=== PATIENT | female | born 1975 | race Caucasian/White ===

== ENCOUNTER 2018-06-05 13:48 | Emergency (ER) | payer SELFPAY ==
[~2018-06-05] VITALS: Ht 167.6 cm; Wt 82.3 kg
[2018-06-05 13:55] VITALS: BP 175/87
--- NOTE | 2018-06-05 14:07 | NUR ---
PT AMBULATED TO ER BED 12
--- NOTE | 2018-06-05 14:10 | NUR ---
PT C/O LLQ ABD PAIN RADIATES TO BACK, REPORTS 10/10 BURNING PAIN. REPORTS NAUSEA . DENIES V/D; SKIN IS PINK/WARM/DRY; AAOX4 WITH EVEN AND STEADY GAIT; LUNGS CLEAR BL; HR EVEN AND REGULAR; PT DENIES ANY FEVER, CP, SOB, OR COUGH AT THIS TIME; PATIENT STATES PAIN OF 10/10 AT THIS TIME; VSS; PATIENT POSITIONED FOR COMFORT; HOB ELEVATED; BEDRAILS UP X2; BED DOWN. ER MD MADE AWARE OF PT STATUS.
--- NOTE | 2018-06-05 16:50 | NUR ---
DENIES ANY NAUSEA VOMITING. VERBALIZED MILD PAIN AT THIS TIME.
[2018-06-05] MEDS ORDERED: NACL 0.9% 1,000 ML IV ONE (16:53)
[2018-06-05] MEDS ORDERED: NACL 0.9% 1,000 ML IV SCH (16:53)
--- NOTE | 2018-06-05 16:53 | NUR ---
PT SEEN BY DR. BUCHANAN.
[2018-06-05 17:22] LABS: BASOPHILS % (AUTO) 0.3 % (0.0-2.0); EOSINOPHILS # (AUTO) 0.1 K/uL (0-0.4); EOSINOPHILS % (AUTO) 0.7 % (0.0-4.0); HEMATOCRIT 31.1 % (36-48); HEMOGLOBIN 9.3 g/dL (12.0-16.0); LYMPHOCYTES # (AUTO) 1.1 K/uL (2.5-16.5); LYMPHOCYTES % (AUTO) 9.4 % (20.5-51.1); MEAN CORPUSCULAR HEMOGLOBIN 20 pg (27-31); MEAN CORPUSCULAR HGB CONC 30 g/dL (33-37); MEAN CORPUSCULAR VOLUME 67.2 fL (80-94); MONOCYTES # (AUTO) 0.5 K/uL (0.8-1.0); MONOCYTES % (AUTO) 4.5 % (1.7-9.3); NEUTROPHILS # (AUTO) 10.4 K/uL (1.8-7.7); NEUTROPHILS % (AUTO) 85.1 % (42.2-75.2); PLATELET COUNT (AUTO) 301 K/uL (140-450); RED BLOOD CELL COUNT(AUTO) 4.63 MIL/uL (4.20-5.40); RED CELL DISTRIBUTION WIDTH 18.1 % (11.6-13.7); WHITE BLOOD COUNT (AUTO) 12.2 K/uL (4.8-10.8)
[2018-06-05 17:23] LABS: APPEARANCE,URINE HAZY (CLEAR); BILIRUBIN,URINE NEGATIVE (NEGATIVE); BLOOD, URINE 3+ (NEGATIVE); COLOR,URINE YELLOW (YELLOW); LEUKOCYTE ESTERASE ,URINE NEGATIVE (NEGATIVE); NITRITE, URINE NEGATIVE (NEGATIVE); PH,URINE 7.5 (5.0-9.0); UGLUCOSE NEGATIVE (NEGATIVE)
[2018-06-05 17:26] LABS: RBC,URINE TOO NUMEROUS TO COUN /HPF (0-5)
[2018-06-05 17:27] LABS: WBC,URINE 0-5 /HPF (0-5)
[2018-06-05 17:35] LABS: ANION GAP 12.9 (8-16); CARBON DIOXIDE 28.3 mmol/L (21-32); CREATININE 0.6 mg/dL (0.6-1.3); POTASSIUM 3.2 mmol/L (3.5-5.1)
[2018-06-05 17:40] LABS: ALBUMIN 3.4 g/dL (3.4-5.0); TOTAL BILIRUBIN 0.2 mg/dL (0.0-1.0)
[2018-06-05] MEDS ORDERED: GLYCOPYRROLATE 0.2 MG/ML VIAL IV ONE (18:20)
[2018-06-05] MEDS ORDERED: KETOROLAC 30 MG/ML VIAL IVP ONE (18:20)
[2018-06-05] MEDS ORDERED: METOCLOPRAMIDE 10 MG/2 ML INJ VIAL IVP ONE (18:20)
--- NOTE | 2018-06-05 18:30 | NUR ---
PT TRANSFERRED TO [facility] VIA PK ON STABLE CONDITION. BELONGINGS TAKEN WITH PT. REPORT GIVEN TO JOANN BRYAN. Addendum: 06/07/18 at 0741 by MINDY WRONG PATIENT CHARTING.
--- NOTE | 2018-06-05 19:15 | NUR ---
REPORT GIVEN TO [employer] RN.
--- NOTE | 2018-06-05 19:16 | NUR ---
RECEIVED REPORT FROM JOANN NELSON.
--- NOTE | 2018-06-05 19:50 | NUR ---
Patient discharged with v/s stable. Written and verbal after care instructions given and explained. Patient alert, oriented and verbalized understanding of instructions. Ambulatory with steady gait. All questions addressed prior to discharge. ID band removed. Patient advised to follow up with PMD. Rx of BENTYL, TRAMADOL AND FLOMAX given. Patient educated on indication of medication including possible reaction and side effects. Opportunity to ask questions provided and answered.
[2018-06-05 19:52] VITALS: BP 150/85
== END 2018-06-05 19:52 | disposition home or self-care (01) ==
LOC: MED 13:48
DX: N13.2 Hydronephrosis with renal and ureteral calculous obstruction (principal)
CPT/HCPCS: 36415; 74176; 76856; 80053; 81001; 81025; 82150; 83690; 84703; 85025; 96374; 96375; 99284; J1885; J2765; J3490; J7030; Q0092

== ENCOUNTER 2021-12-09 16:49 | Emergency (ER) | payer MEDICAID ==
[~2021-12-09] VITALS: Ht 167.6 cm; Wt 76.2 kg
[2021-12-09 17:16] VITALS: BP 137/84
[2021-12-09] MEDS ORDERED: ONDANSETRON 4 MG ODT PO ONE (17:35)
[2021-12-09] MEDS ORDERED: KETOROLAC 30 MG/ML VIAL IM ONE (18:20)
[2021-12-09] MEDS ORDERED: ONDANSETRON 4 MG ODT ONE (19:01)
--- NOTE | 2021-12-09 19:27 | NUR ---
ROSY COLLECTED AND TAKEN TO LAB.
[2021-12-09] MEDS ORDERED: SULF-59 PO (19:29)
[2021-12-09] MEDS ORDERED: IBUP-2213 PO (19:29)
[2021-12-09] MEDS ORDERED: PYR100 PO (19:29)
[2021-12-09 19:32] VITALS: BP 137/84
--- NOTE | 2021-12-09 19:32 | NUR ---
Patient discharged with v/s stable. Written and verbal after care instructions given and explained. Patient alert, oriented and verbalized understanding of instructions. Ambulatory with steady gait. All questions addressed prior to discharge. ID band removed. Patient advised to follow up with PMD. Rx of IBUPROFEN, PYRIDIUM AND BACTRIM given. Patient educated on indication of medication including possible reaction and side effects. Opportunity to ask questions provided and answered.
[2021-12-09] MEDS ORDERED: ONDA-188 PO (19:33)
== END 2021-12-09 19:52 | disposition home or self-care (01) ==
LOC: MED 16:49
DX: N39.0 Urinary tract infection, site not specified (principal); Z20.822 Contact with and (suspected) exposure to COVID-19; Z79.899 Other long term (current) drug therapy
CPT/HCPCS: 81002; 81025; 87086; 87426; 96372; 99283; J1885; Q0162

== ENCOUNTER 2022-09-07 12:52 | Emergency (ER) | payer MEDICAID ==
[~2022-09-07] VITALS: Ht 167.6 cm; Wt 72.6 kg
[~2022-09-07 12:52] MED LIST: IBUP-2213 PO; ONDA-188 PO; PYR100 PO; SULF-59 PO
[2022-09-07 13:03] VITALS: BP 162/91
--- NOTE | 2022-09-07 13:46 | NUR ---
PATIENT AMBULATED TO ER BED 08
--- NOTE | 2022-09-07 13:46 | NUR ---
pt c/o lower back pain with generalized body aches x3 days with fever. pt also requesting to be tested for STI d/t having vaginal discharge.
--- NOTE | 2022-09-07 13:50 | NUR ---
47 YO F PRESENTS W/LOW BACK PAIN, CHILLS, FEVER 100.2 X 2DAYS, YELLOW VAGINAL DISCHARGE INTERMITTENT X 1 YR. PT DENIES N,V,D,C, INJURY. AOX4. NAD. HX: DENIES ALLERGIC TO PENICILLIN-SWOLLEN MOUTH AND RASH
--- NOTE | 2022-09-07 14:10 | NUR ---
[facility] SENT TO LAB
[2022-09-07 14:42] LABS: APPEARANCE,URINE CLEAR (CLEAR); BILIRUBIN,URINE 1+ (NEGATIVE); BLOOD, URINE 2+ (NEGATIVE); COLOR,URINE YELLOW (YELLOW); LEUKOCYTE ESTERASE ,URINE 2+ (NEGATIVE); NITRITE, URINE NEGATIVE (NEGATIVE); UGLUCOSE NEGATIVE (NEGATIVE)
--- NOTE | 2022-09-07 14:53 | NUR ---
LAB CALLED, REQUESTING FOR MORE URINE.
[2022-09-07 15:01] LABS: RBC,URINE 11-20 (MOD) /HPF (0-5)
[2022-09-07 15:02] LABS: URINE AMORPHOUS URATE 2+ /HPF (None Seen)
[2022-09-07] MEDS ORDERED: METR-435 PO (15:34)
[2022-09-07] MEDS ORDERED: CEPH-588 PO (15:34)
--- NOTE | 2022-09-07 15:42 | NUR ---
Patient discharged with v/s stable. Written and verbal after care instructions given and explained. Patient alert, oriented and verbalized understanding of instructions. Ambulatory with steady gait. All questions addressed prior to discharge. ID band removed. Patient advised to follow up with PMD. Rx of KEFLEX, FLAGYL given. Patient educated on indication of medication including possible reaction and side effects. Opportunity to ask questions provided and answered.
== END 2022-09-07 15:42 | disposition home or self-care (01) ==
LOC: MED 12:52
DX: N39.0 Urinary tract infection, site not specified (principal); N76.0 Acute vaginitis; B96.89 Other specified bacterial agents as the cause of diseases classified elsewhere; I10 Essential (primary) hypertension; Z79.899 Other long term (current) drug therapy; Z79.2 Long term (current) use of antibiotics; Z79.1 Long term (current) use of non-steroidal anti-inflammatories (NSAID)
CPT/HCPCS: 81001; 81025; 87086; 87210; 99283

== ENCOUNTER 2023-07-11 20:08 | Emergency (ER) | payer MEDICAID ==
[~2023-07-11] VITALS: Ht 165.1 cm; Wt 72.6 kg
[~2023-07-11 20:08] MED LIST changes: +CEPH-588 PO; +METR-435 PO
[2023-07-11 20:40] VITALS: BP 162/100; PULSE 83; RESP 18; TEMP 97.8; O2SAT 98
[2023-07-11] MEDS ORDERED: LIDOCAINE MPF 1% 5 ML ONE (22:33)
[2023-07-11] MEDS ORDERED: cefTRIAXone 1,000 MG VIAL ONE (22:33)
[2023-07-11] MEDS ORDERED: CLIN300C2 PO (22:38)
[2023-07-11] MEDS ORDERED: NAPR-337 PO (22:38)
[2023-07-11] MEDS: cefTRIAXone 1,000 MG in LIDOCAINE MPF 1% 2.1 ML IM ONE (22:40)
[2023-07-11 22:42] VITALS: BP 143/82; PULSE 88; RESP 16; TEMP 98; O2SAT 99
== END 2023-07-11 22:40 | disposition home or self-care (01) ==
LOC: MED 20:08
DX: S00.532A Contusion of oral cavity, initial encounter (principal); K12.2 Cellulitis and abscess of mouth; I10 Essential (primary) hypertension; Z88.0 Allergy status to penicillin; Z79.899 Other long term (current) drug therapy; W22.8XXA Striking against or struck by other objects, initial encounter; Y93.89 Activity, other specified; Y92.89 Other specified places as the place of occurrence of the external cause; Y99.8 Other external cause status
CPT/HCPCS: 96372; 99283; J0696; J2001